=== PATIENT | male | born 1945 | race Asian ===

== ENCOUNTER → 2016-11-19 | Outpatient (CLI) | payer OTHER | LOC: BMCIMAGING 12:42 | PROVIDERS: ATTEND Emergency Medicine | DX: R05 Cough (principal) ==

== ENCOUNTER → 2016-12-27 | Outpatient (CLI) | payer OTHER | LOC: FIMAGING 08:08 | PROVIDERS: ATTEND Physician Assistant Medical | DX: R13.10 Dysphagia, unspecified (principal); K21.9 Gastro-esophageal reflux disease without esophagitis; K63.9 Disease of intestine, unspecified ==

== ENCOUNTER 2017-04-10 08:15 | Day surgery (SDC) | payer OTHER ==
[2017-04-10] MEDS ORDERED: DIAZEPAM 5 MG TAB PO ONE (08:20)
[2017-04-10] MEDS ORDERED: diphenhydrAMINE 25 MG CAP PO ONE ×2 (08:20→08:50)
[2017-04-10] MEDS ORDERED: NS 1,000 ML IV ONE (08:20)
[2017-04-10] MEDS ORDERED: ASPIRIN EC 325 MG TAB PO ONE ×2 (08:20→08:50)
[2017-04-10] MEDS ORDERED: FAMOTIDINE 20 MG TAB PO ONE (08:20)
--- NOTE | 2017-04-10 08:49 | CPEKG ---
Heart Rate: 69 RR Interval: 870 P-R Interval: 168 QRSD Interval: 84 QT Interval: 400 QTC Interval: 429 P [place]: -8 QRS [place]: 26 T Wave [place]: 16 EKG Severity - NORMAL ECG - EKG Impression: SINUS RHYTHM EKG Impression: Possible left atrial abnormality EKG Impression: No significant change from February 20, 2011 Electronically Signed By: Fantasma Pena 10-Apr-2017 17:09:11
[2017-04-10] MEDS ORDERED: FAMOTIDINE 20 MG TAB ONE (08:50)
[2017-04-10] MEDS ORDERED: DIAZEPAM 5 MG TAB ONE (08:50)
[2017-04-10] MEDS ORDERED: IOPAMIDOL (ISOVUE-370) 150 ML BTL IV ONE ×2 (08:53→10:08)
[2017-04-10] MEDS ORDERED: LIDOCAINE 1% 300 MG/30 ML SDV ONE (08:53)
[2017-04-10] MEDS ORDERED: HEPARIN 10,000 UNIT/10 ML MDV ONE (08:53)
[2017-04-10] MEDS ORDERED: VERAPAMIL 5 MG/2 ML VIAL ONE (08:53)
[2017-04-10] MEDS ORDERED: MIDAZOLAM 2 MG/2 ML VIAL ONE (08:59)
[2017-04-10] MEDS ORDERED: fentaNYL 100 MCG/2 ML INJ ONE (08:59)
[2017-04-10] MEDS ORDERED: HYDROCORTISONE 100 MG/2 ML VIAL IVP ONE (09:00)
[2017-04-10 09:06] LABS: % IMMATURE GRANULYOCYTES 0.6 % (0.0-1.1); ABSOLUTE IMMATURE GRANULOCYTES 0.03 10^3/uL (0.00-0.10); ADD DIFF? NO; ADD MORPH? NO; ADD SCAN? NO; ATYPICAL LYMPHOCYTE FLAG 30 (0-99); FRAGMENT RBC FLAG 0 (0-99); HEMATOCRIT 43.7 % (40.0-51.0); HEMOGLOBIN 15.2 g/dL (13.7-17.5); LEFT SHIFT FLG 0 (0-99); LIPEMIA HEMOLYSIS FLAG 90 (0-99); MEAN CELL HEMOGLOBIN 33.3 pg (27.9-34.1); MEAN CELL HEMOGLOBIN CONCENTR. 34.8 g/dL (32.4-36.7); MEAN CELL VOLUME 95.6 fL (81.5-99.8); MEAN PLATELET VOLUME 9.3 fL (8.7-11.7); PLATELET CLUMPS FLAG 0 (0-99); PLATELET COUNT 164 10^3/uL (150-400); RED BLOOD CELL COUNT 4.57 10^6/uL (4.40-6.38); RED CELL DISTRIBUTION WIDTH 13.3 % (11.5-15.2)
[2017-04-10 09:19] LABS: INR 1.05 (0.83-1.16); PROTIME(PATIENT) 13.6 SEC (12.0-15.0)
[2017-04-10 09:20] LABS: ANION GAP 10 mEq/L (8-16); CARBON DIOXIDE 23 mEq/l (22-31); CHLORIDE 107 mEq/L (97-110); CHOLESTEROL 159 mg/dL (140-220); CHOLESTEROL/HDL RATIO 1.85 RATIO (1.00-4.97); CREATININE 0.9 mg/dL (0.7-1.3); GLOMERULAR FILTRATION RATE > 60; GLUCOSE 86 mg/dL (70-100); HIGH DENSITY LIPOPROTEIN 86 mg/dL (40-65); LDL/HDL RATIO 0.65 RATIO (1.00-3.64); LOW DENSITY LIPOPROTEIN 56 mg/dL (80-100); MAGNESIUM 2.2 mg/dL (1.6-2.3); NON-HIGH DENSITY LIPOPROTEIN 73 mg/dL (90-129); POTASSIUM 4.2 mEq/L (3.5-5.2); SODIUM 140 mEq/L (134-144); TRIGLYCERIDE 85 mg/dL (40-150); VERY LOW DENSITY LIPOPROTEINS 17 mg/dL (8-25)
--- NOTE | 2017-04-10 10:53 | PDDXCAT ---
Diagnostic Cath Note - . Date: 04/10/17 Personal Consultant: Parag - Procedure Procedure: left heart catheterization Intervention: none *Procedure 1. selective coronary angiography 2. left heart catheterization Indication: CCS Class IV angina Access: right radial *Materials Left Heart Cath size: 5F Left Heart Cath materials: JR4, pigtail, JL3.5 *Findings- Selective Coronary Angiography LM: The left main is ~5 mm in size. There is no evidence of flow-limiting disease. There is MIKEL III flow throughout. LAD: The LAD is ~3 mm in size. There is no evidence of flow-limiting obstruction , dissection or thrombus. LCX: The LCX is ~2.75 mm in size. There is no evidence of flow-limiting obstruction, dissection or thrombus. This is a co-dominant vessel. RCA: The RCA is ~3 mm in size and it is co-dominant. There is luminal narrowing near the ostium which may be secondary to catheter placement. No evidence of flow-limiting disease, dissection or thrombus. *Findings- Left Heart Catheterization LVEDP: 23 mmHg AO: 101/56/76 mmHg LVEF: >65% LVG: The left ventricle is hypercontractile with no evidence of wall motion abnormality. There is evidence of mitral regurgitation with pressurized injection and injection related ventricular tachycardia. *Summary Complications: None Estimated Blood Loss: <50 ml Closure Method: TR band Assessment/Conclusion: 1. No significant evidence of flow-limiting CAD on the basis of this study. 2. The left main is relatively long in its course. Left main arteries that are long in their course may be prone to spasm. 3. Mitral valve regurgitation noted on pressurized injection during an episode of tachycardia. 4. I think he should be treated with sublingual Nitroglycerin 0.4 mg on an as needed basis. His other medical regimen will not be changed. Patient Problems: Problems Problem Status Onset Osteoarthritis of knee Acute
== END 2017-04-10 15:00 | disposition home or self-care (01) ==
LOC: FCATH 08:15
PROVIDERS: ATTEND Internal Medicine Cardiovascular Disease
PROC: B2111ZZ Fluoroscopy of Multiple Coronary Arteries using Low Osmolar Contrast (ICD-10-PCS; principal; 2017-04-10)
PROC: B2151ZZ Fluoroscopy of Left Heart using Low Osmolar Contrast (ICD-10-PCS; principal; 2017-04-10)
PROC: 4A023N7 Measurement of Cardiac Sampling and Pressure, Left Heart, Percutaneous Approach (ICD-10-PCS; principal; 2017-04-10)
DX: R07.89 Other chest pain (principal); R94.31 Abnormal electrocardiogram [ECG] [EKG]; I25.10 Atherosclerotic heart disease of native coronary artery without angina pectoris; E27.1 Primary adrenocortical insufficiency; I34.0 Nonrheumatic mitral (valve) insufficiency; M17.9 Osteoarthritis of knee, unspecified; Z96.641 Presence of right artificial hip joint
CPT/HCPCS: J1644; J2250; J3010; Q9967

== ENCOUNTER → 2017-10-24 | Outpatient (CLI) | payer OTHER | LOC: BMCIMAGING 14:01 | PROVIDERS: ATTEND Orthopaedic Surgery Hand Surgery | DX: M25.742 Osteophyte, left hand (principal) ==

== ENCOUNTER → 2018-10-10 | Outpatient (CLI) | payer OTHER | LOC: BMCIMAGING 09:14 | PROVIDERS: ATTEND Orthopaedic Surgery Hand Surgery | DX: M19.012 Primary osteoarthritis, left shoulder (principal); M25.511 Pain in right shoulder ==

== ENCOUNTER → 2018-10-30 | Outpatient (CLI) | payer OTHER | LOC: FIMAGING 13:28 | PROVIDERS: ATTEND Orthopaedic Surgery Hand Surgery | DX: R22.32 Localized swelling, mass and lump, left upper limb (principal) ==

== ENCOUNTER → 2018-12-23 | Outpatient (CLI) | payer OTHER | LOC: BMCIMAGING 14:22 | PROVIDERS: ATTEND Nurse Practitioner Adult Health | DX: J40 Bronchitis, not specified as acute or chronic (principal); M47.814 Spondylosis without myelopathy or radiculopathy, thoracic region; M25.711 Osteophyte, right shoulder ==